=== PATIENT | female | born 1950 | race Caucasian/White ===

== ENCOUNTER 2016-08-23 06:25 | Inpatient (IN) | payer MEDICARE, OTHER ==
--- NOTE | ~2016-08-23 | OP ---
Record Of Operation [facility] [address] [place]. [address] NAME: TOSHIA BRICENO : 52 STATUS : ADM IN PAT#: [id number] AGE: 66 ADM/REG DATE : 08/23/16 MR#: [id number] REPORT SERV DATE: 08/23/16 DICTATED BY: IRMA MEDINA DATE: 08/23/16 REPORT STATUS : Draft TRANSCRIBED BY: MODMaurisio DATE: 08/23/16 DATE OF PROCEDURE: PREOPERATIVE DIAGNOSIS: Severe right hip degenerative joint disease. POSTOPERATIVE DIAGNOSIS: Severe right hip degenerative joint disease. PROCEDURE: Uncemented total hip arthroplasty, Tri-Lock. SIDE: Right. MOLDER OFFBEARER: ANESTHESIA: See chart. SIZE: See chart. ESTIMATED BLOOD LOSS: About 100 mL. INDICATIONS FOR SURGERY: PROCEDURE: The patient was taken to the operating room and placed supine on the table without incident. Anesthetic was induced per the anesthesiologist. A Guerrier catheter was placed by the nurse in the standard sterile technique. The correct side for the procedure was identified by preoperative markings and matched with the consent form. All personnel in the room were in agreement regarding the procedure, patient, and side. The patient was then carefully positioned and carefully padded and prepped and draped in the normal sterile fashion. The patient received prophylactic preoperative antibiotics at the appropriate time. The preoperative x-ray was brought up on the monitor. Again, this was reviewed with the staff in the room. According with the preoperative plan, and angled, an anterolateral incision was made centered over the trochanter extending from proximal posterior to distal anterior. Electrocautery was used to maintain meticulous hemostasis. The IT band was split in line with its fibers. A Charnley retractor was placed over saline moistened laps. A standard anterolateral approach to the hip was carried out dissecting in line with the vastus medialis fibers lifting the inferior 20% of the vastus medialis, proximally the interior 20% of the gluteus medius and gluteus minimus tendons off the anterior capsule. Periosteal elevator was used to elevate soft tissue gently directly off the proximal anterior femoral bone. Appropriate retractors were carefully placed. Complete anterior capsulectomy was performed. The hip was then carefully dislocated with a combination of traction maneuver by the classroom assistant and scooping the ball out of the socket with a Hohmann. A femoral neck osteotomy was marked according to what had been preoperatively planned with a broach as a template. The distance for the femoral neck osteotomy was measured with a ruler. A femoral neck osteotomy was made with an oscillating saw under appropriate retraction. Meticulous hemostasis was again obtained. The leg was then brought up out of the anterior bag and Record Of Operation [facility] [id number] [place] [place]. [address] NAME: TOSHIA BRICENO : 52 STATUS : ADM IN PAT#: [id number] AGE: 66 ADM/REG DATE : 08/23/16 MR#: [id number] REPORT SERV DATE: 08/23/16 DICTATED BY: IRMA MEDINA DATE: 08/23/16 REPORT STATUS : Draft TRANSCRIBED BY: ELIESER DATE: 08/23/16 positioned with the lower extremity in external rotation and slight flexion. Acetabular retractors were placed carefully palpating to be sure that they were directly on the bone. The acetabular labrum was excised with electrocautery and rongeur. Pulvinar fat was removed with a large curette and rongeur and again meticulous hemostasis was obtained. Sequential reamers were used in the acetabulum to 1 mm. less than the final size which was chosen. This was felt to give excellent interference fit. The acetabular fossa was then copiously irrigated with pulsatile lavage and actual acetabular component was placed and impacted and checked to make sure it was down snug. The overall alignment was checked. The acetabular relay worker was then removed. Screws were placed in the standard fashion. A drill, depth gauge and self tapping screw placement taking care not to plunge as the drill holes were carefully placed. A trial liner was then placed and attention directed back to the proximal femur. The leg was placed back into the anterior bag. The proximal femur was prepared using a box chisel following by a T-handled reamer to determine the intramedullary alignment. This was followed by sequential broaches up to the final broach. Once it was seated in the appropriate position, a Calcar reamer was used to plane the proximal femur. Trial reduction was then done with a trial prosthetic ball and neck. A straight edge was used to compare the tip of the trochanter to center of the ball relationship to what had been noted on the preoperative x-ray. Careful reduction was then done of the total hip. Palpation was done to ascertain and compare leg lengths by palpating the nonoperative leg and also by checking soft tissue tension. The stability of the hip was checked in full extension with full external rotation and in full flexion with adduction, flexion and internal rotation. The hip was then redislocated with a bone hook. The femoral trial and femoral broach were removed. The acetabulum was then prepared under appropriate retraction by removing the trial liner. A central hole eliminator was placed and tightened. The shell was irrigated out. The actual insert was placed and impacted and then checked to be sure it was down snug with a joker. The leg was again positioned in the bag. The proximal femur exposed, irrigated and the actual thermal prosthesis was taken from the personal financial representative and impacted. Once it was down, the trunnion was cleansed with a wet and dry lap and the prosthetic thermal head was placed and impacted and checked to be sure it was down snug. The acetabulum was irrigated and reduction was obtained. Again, we checked soft tissue tension, leg length and stability as described above. The hip was closed in a layered fashion with a 5 mm. Mersilene tape placed through a single drill hole in the proximal anterior/superior trochanter reattaching the gluteus medius and minimus fibers. The vastus lateralis, gluteus medius, and gluteus minimus were then closed in a sleeve. Drain was placed between the vastus and the IT band exiting distally anteriorly. The IT band was closed. Subcutaneous closure and skin closure were then obtained. A sterile dressing was applied. The patient was carefully positioned into a supine position and then awakened. The patient was then carefully transferred to the stretcher to be returned to the postoperative care unit without incident. COMPLICATION: None. SPECIMENS: Right femoral head. Record Of Operation [facility] [id number] [facility] [place]. [address] NAME: TOSHIA BRICENO : 52 STATUS : ADM IN [facility]#: [id number] AGE: 66 ADM/REG DATE : 08/23/16 MR#: [id number] REPORT SERV DATE: 08/23/16 DICTATED BY: IRMA MEDINA DATE: 08/23/16 REPORT STATUS : Draft TRANSCRIBED BY: ELIESER DATE: 08/23/16 WTB/ELIESER Eileen Medina M.D. / [id number] CC: Eileen Medina M.D.
[~2016-08-23 06:25] MED LIST: CELEXA20 PO; MOBIC15 MG PO; PROAIR HFA INH; SINGULAIR1 PO; SPIRIVA RESPIMAT INH; SYMBICORT 160/41 INH INH; ULTRAM50 PO; VALIUM10 MG PO
[2016-08-24 05:55] LABS: HEMOGLOBIN 14.1 g/dL (12.0-16.0)
[2016-08-24 05:58] LABS: HEMATOCRIT 44.6 % (36.0-48.0)
[2016-08-24 06:04] LABS: INTERNATIONAL NORMAL RATI 1.1 UNITS (-); PROTIME (NOT ORD) 13.6 SEC (12.0-14.5)
[2016-08-24 06:13] LABS: BUN (BLOOD UREA NITROGEN) 10 MG/DL (6-23); CALCIUM, SERUM 9.2 MG/DL (8.5-10.4); CHLORIDE, SERUM 103 MMOL/L (96-112); CREATININE 0.74 MG/DL (0.55-1.02); GFR AFRICAN AMERICAN 99 ML/MIN (>=60); GFR NON AFRICAN AMERICAN 85 ML/MIN (>=60); POTASSIUM, SERUM 4.2 MMOL/L (3.5-5.3); SODIUM, SERUM 143 MMOL/L (135-148)
[2016-08-24 06:16] LABS: CO2 (CARBON DIOXIDE) 30 MMOL/L (24-34); GLUCOSE, SERUM 120 MG/DL (60-99)
[2016-08-25 05:40] LABS: HEMATOCRIT 42.1 % (36.0-48.0); HEMOGLOBIN 13.4 g/dL (12.0-16.0)
[2016-08-25 05:42] LABS: INTERNATIONAL NORMAL RATI 1.7 UNITS (-)
[2016-08-25 05:44] LABS: PROTIME (NOT ORD) 19.8 SEC (12.0-14.5)
[2016-08-25] MEDS ORDERED: C25 PO (10:37)
[2016-08-25] MEDS ORDERED: NORCO1 TA2 PO (10:37)
[2016-08-25] MEDS ORDERED: ZOFRAN4 PO (10:37)
[2016-08-25] MEDS ORDERED: HABIT21 TOP (10:38)
== END 2016-08-25 11:52 | disposition home or self-care (01) | DRG 470 ==
LOC: SDC/OF 06:25 → PACU 10:57 → 3JRC 12:07
PROVIDERS: Specialist
PROC: 0SR902A Replacement of Right Hip Joint with Metal on Polyethylene Synthetic Substitute, Uncemented, Open Approach (ICD-10-PCS; principal; 2016-08-23 08:00)
DX: M16.11 Unilateral primary osteoarthritis, right hip (principal); J44.9 Chronic obstructive pulmonary disease, unspecified; F32.9 Major depressive disorder, single episode, unspecified; J45.909 Unspecified asthma, uncomplicated; F41.9 Anxiety disorder, unspecified; Z90.710 Acquired absence of both cervix and uterus; M81.0 Age-related osteoporosis without current pathological fracture; F17.210 Nicotine dependence, cigarettes, uncomplicated; Z88.0 Allergy status to penicillin; Z88.2 Allergy status to sulfonamides; Z88.1 Allergy status to other antibiotic agents
CPT/HCPCS: 36415; 71020; 72170; 80048; 80053; 81001; 85014; 85018; 85025; 85610; 86850; 86900; 86901; 87641; 88304; 88311; 93005; 94640; 97110-GP; 97116-GP; 97150-GP; 97161-GP; 97165-GO; A9270-GY; C1713; C1776; J0690; J1885; J2250; J2274; J2370; J2405; J2795; J3010